=== PATIENT | female | born 1990 | race Two or more races ===

== ENCOUNTER 2025-03-29 09:15 | Observation (INO) | payer OTHER, SELFPAY ==
[2025-03-29] VITALS (85 sets, daily range): BP systolic 106–131; BP diastolic 56–77; PULSE 75–118; RESP 18–98; TEMP 36.6–36.8; O2SAT 96–99; BMI 29.2
--- NOTE | 2025-03-29 09:35 | EDNOTE_ITS ---
ED OB Contraction Preg RMI/HPI RME / HPI RME / HPI Narrative: DR. BIRCH MAIN ED EVALUATION: 34 year old female presents to the Emergency Department BIBA with complaint of contractions since this morning at about 8 AM, but did not tell us an exact time. She is 33 weeks , confirmed last week with 32 weeks ultrasound and estimated delivery date is April 15. G1, P0, A0. [facility] is Dr. Giron at [place]. 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 No vaginal discharged or abnormal bleed. Related Data Home Medications ?Medication ?Instructions ?Recorded ?Confirmed aspirin 81 mg tablet,delayed 81 mg PO QDAY 03/29/25 release (Adult Aspirin Regimen) vit with calcium-iron 1 tab PO QDAY 03/29/25 03/29/25 fum-folic acid 60 mg-0.8 mg tablet Allergies Allergy/AdvReac Type Severity Reaction Status Date / Time No Known Allergies Allergy Verified 03/29/25 09:48 Review of Systems Review of Systems Systems Reviewed: All systems reviewed, normal except as documented Narrative Review of Systems: GEN: No fever, no chills, no weight loss EYES: No discharge, no visual changes, no pain HEENT: No ear pain, no congestion, no sore throat PULM: No shortness of breath, no cough, no congestion CV: No chest pain, no dyspnea on exertion, no palpitations GI: No nausea, no vomiting, no diarrhea, no pain, no constipation : No frequency, no urgency and no dysuria MUSC/SKEL: No joint pain, no back pain SKIN: No rash PSYCH: No hallucinations, no depression HEME/LYMPH: No easy bleeding or bruising tendencies NEURO: No weakness, no headache Genitourinary Genitourinary: Denies abnormal vaginal bleeding, Denies vaginal discharge and Reports other (contractions) Past Medical History Social History SMOKING STATUS: Never smoker SUBSTANCE USE: does not use ALCOHOL: Never ED Exam Narrative Physical exam: GENERAL APPEARANCE: AxOx4, generally well-appearing, no acute distress. HEENT: NC, AT. MMM. EOMI, clear conjunctiva, oropharynx clear. NECK: Supple without lymphadenopathy. No stiffness or restricted ROM. HEART: Normal rate and regular rhythm, normal S1/S1, no m/r/g LUNGS: CTAB, moving air well. No crackles or wheezes are heard. ABDOMEN: Soft, nontender, nondistended with good bowel sounds heard. BACK: No midline C/T/L spine pain or deformity, No CVAT, no obvious deformity. EXTREMITIES: Without cyanosis, clubbing or edema. : Did a speculum vaginal exam, the external cervical os is closed. MUSCULOSKELETAL: FROM of all major joints, no chest tenderness NEUROLOGICAL: Grossly nonfocal. Alert and oriented, moving all 4 extremities. CN not formally tested but appear grossly intact. Observed to ambulate with normal gait. Skin: Warm and dry without any rash. Course Quality Measures none Orders Category Date Time Status Place in Observation Status Routine Admission 03/29/25 09:45 Active Continuous Monitoring Routine Care 03/29/25 09:45 Ordered Insert IV NOW Care 03/29/25 09:44 Active Non-Stress Test Now Care 03/29/25 09:45 Active Sterile Vaginal Exam Routine Care 03/29/25 Ordered Diet Regular Diet 03/29/25 Lunch Active CBC Stat Lab 03/29/25 10:45 Completed Group B Streptococcus Culture Routine Lab 03/29/25 11:02 Received Syphilis Stat Lab 03/29/25 10:45 Completed Type and Screen Stat Lab 03/29/25 10:45 Completed Urinalysis Stat Lab 03/29/25 11:02 Completed Urine Culture Routine Lab 03/29/25 11:02 Received Betamet Acet/Betamet Na pH Inj [Celestone Inj] Med 03/29/25 09:44 Discontinued 12 mg IM X1 ONE Ferric Sod Gluc Inj [Ferrlecit Inj] 125 mg Med 03/29/25 12:43 Discontinued Sodium Chloride 0.9% [Ns] 100 ml IV X1 Ringers Lactated 1000 ml [Lactated Ringers] 1,000 ml Med 03/29/25 09:45 Active IV 100 mls/hr Ringers Lactated 1000 ml [Lactated Ringers] 1,000 ml Med 03/29/25 09:44 Discontinued IV 999 mls/hr Terbutaline Sulf Inj [Brethine Inj] Med 03/29/25 09:44 Active 0.25 mg SC Q20M PRN Vital Signs Vital signs: Vital Signs Pulse Rate 90 03/29/25 09:27 Blood Pressure 109/67 03/29/25 09:27 OB/Uterine Contractions MDM Narrative MDM Narrative:: I, Carlie Lewis, am scribing for and in the presence of Dr. Birch. Patient data External records reviewed:: EMS form Clinical information provided by:: patient and EMS Social determinants that could affect healthcare access:: none Patient has the following chronic illnesses:: Denies any PMHx, surgeries, daily medications, or known allergies. 33 weeks . G1, P0, A0. How is presenting disease/condition affected by chronic disease/condition?: no chronic disease Evaluation data The following diagnostics were reviewed and interpreted by me:: other (specify) (none) Lab and/or radiology exams considered but not ordered:: none Interpretation Summary: n/a Medications / Prescriptions Medications or Prescriptions considered but not ordered:: none Medication administrations:: Medication Administration History Lactated Ringer's (Lactated Ringers) 1,000 mls @ 100 mls/hr IV .Q10H SUELLEN Stop: 04/28/25 09:44 Last Admin: 03/29/25 11:05 Dose: 100 mls/hr Documented By: CL Terbutaline Sulfate (Terbutaline Sulf Inj 1 Mg/Ml Vial) 0.25 mg SC Q20M PRN PRN Reason: CONTRACTIONS Last Admin: 03/29/25 11:36 Dose: 0.25 mg Documented By: CL Discontinued Medications Betamethasone Acet/Betameth SodPhos (Betamet Acet/Betamet Na Ph (Celestone) 6 Mg/Ml Vial) 12 mg IM X1 ONE Stop: 03/29/25 09:45 Last Admin: 03/29/25 11:07 Dose: 12 mg Documented By: CL Lactated Ringer's (Lactated Ringers) 1,000 mls @ 999 mls/hr IV .Q1H1M ONE Stop: 03/29/25 10:44 Last Admin: 03/29/25 09:40 Dose: 999 mls/hr Documented By: CL Ferric Sodium Gluconate 125 mg (/ Sodium Chloride) 110 mls @ 110 mls/hr IV X1 ONE Stop: 03/29/25 12:44 Last Admin: 03/29/25 13:04 Dose: 110 mls/hr Documented By: ML none Consultations Consultation(s) initiated? (list below): No Diagnosis OB Contractions Differential Diagnosis: -induced hypertension, premature labor and pre-eclampsia Most likely diagnosis given after review of the tests above:: Premature contractions Admission Indicated Admission indicated?: not indicated Explain why admission is indicated or not indicated:: sent upstairs to [facility] Admission Request Was there a request for admission?: No Disposition Plan Disposition Plan: other (specify) (sent upstairs to [facility]) Discharge Plan Prescriptions/Referrals Prescriptions/Med Rec: No Action vit-iron fum-folic ac 60-0.8 mg tablet 1 tab PO QDAY aspirin [Adult Aspirin Regimen] 81 mg tablet,delayed release (DR/EC) 81 mg PO QDAY Referrals: No Primary/Family,Physician [Primary Care Provider] - Patient/Caregiver Discharge Instructions Print Language: Malian
[2025-03-29] MEDS: RINGERS LACTATED 1000 ML 1,000 ML 999 ML IV (09:40)
[2025-03-29] MEDS: RINGERS LACTATED 1000 ML 1,000 ML 100 ML IV (11:05)
[2025-03-29] MEDS: BETAMET ACET/BETAMET NA PH (Celestone) 6 MG/ML VIAL 12 MG IM (11:07)
[2025-03-29] MEDS: TERBUTALINE SULF INJ 1 MG/ML VIAL 0.25 MG SC (11:36)
[2025-03-29 11:38] LABS: Collection Type, Urine Clean Catch
[2025-03-29 11:41] LABS: Basophils % (Auto) 0 % (0-2.5); Eosinophils # (Auto) 0.3 Thou/mm3 (0.0-0.5); Eosinophils % (Auto) 3 % (0-10); Hematocrit 27.3 % (36.0-46.0); Hemoglobin 9.5 g/dL (12.0-16.0); Immature Granulocytes % (Auto) 1 % (0-0); Immature Granulocytes Auto 0.13 Thou/mm3 (0.00-0.00); Lymphocytes # (Auto) 1.7 Thou/mm3 (1.0-4.8); Lymphocytes % (Auto) 16 % (10-50); Mean Corpuscular HGB Conc 34.8 g/dl (31.0-37.0); Mean Corpuscular Hemoglobin 27.8 pg (25.0-35.0); Mean Corpuscular Volume 80 fL (80-100); Monocytes # (Auto) 0.9 Thou/mm3 (0.0-0.8); Monocytes % (Auto) 8 % (0-12); Neutrophils # (Auto) 7.6 Thou/mm3 (1.8-7.7); Neutrophils % (Auto) 71 % (37-80); Nucleated Red Blood Cell % 0 /100 WBC (0); Platelet Count 237 Thou/mm3 (140-440); RDW Standard Deviation 34.3 fL (36.4-46.3); Red Blood Count 3.42 Miln/mm3 (4.00-5.20); White Blood Count 10.6 Thou/mm3 (3.6-11.0)
[2025-03-29 12:06] LABS: Bilirubin,Urine Negative (Negative); Blood,Urine Negative (Negative); Clarity,Urine Clear (Clear/Hazy); Color,Urine Lt-Yellow (Lt Yel-Yel); Glucose, Urine Negative (Negative); Hyaline Casts,Urine < 1 /hpf (0-1); Ketones,Urine Negative (Negative); Leukocyte Esterase,Urine Negative (Negative); Nitrite,Urine Negative (Negative); PH,Urine 6.5 (5.0-7.0); Protein,Urine Negative (Neg - Trace); RBC,Urine < 1 /hpf (0-3); Specific Gravity,Urine 1.006 (1.001-1.035); Squamous Epithelial Cell,Urine 1 /hpf (0-5); Urobilinogen,Urine Negative mg/dL (0.0-1.0); WBC,Urine < 1 /hpf (0-5)
[2025-03-29 12:33] LABS: Syphilis Nonreactive (Nonreactive)
--- NOTE | 2025-03-29 12:47 | PD.LDANTE ---
Documentation for date of: 03/29/25 OB Labor/Induct. HPI History of Present Illness Chief complaint: contractions : 2 Para: 0 Term pregnancies: 0 pregnancies: 0 Living children: 0 History of Abortions: Spontaneous and Elective: 1 History of Vaginal deliveries: 0 History of sections: No History of : No WENDY: 05/15/25 Gestational Age (weeks): 33 Gestational Age (days): 2 History of present illness: Patient presents for contractions that started around 0800. 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 Afterwards, she felt regular ctx and came to [facility] via EMS. No LOF. No vaginal bleeding. Normal movement x2. No fevers/chills. History of Present Adequate Care: Yes Narrative: Di-Di twin , has PNC with Dr. Giron in [place] Twins have been cephalic/transverse, so planning for section for delivery at 38 weeks Taking PNV and ASA Labs Labs: Unknown: RPR, Hepatitis B, Rubella Titre, HIV, Chlamydia, Gonorrhea, Herpes Type 1, Herpes Type 2, Group Beta Strep and Covid-19 Review of Systems Review of Systems Narrative Review of Systems: Review of Systems Systems Reviewed: All systems reviewed, normal except as documented Constitutional Constitutional: Denies body ache(s), Denies chills, Denies fever(s) and Denies headache(s) ENT Ears, Nose, Mouth, and Throat: Denies headache(s) and Denies vertigo Cardiovascular Cardiovascular: Denies chest pain, Denies palpitations, Denies dyspnea and Denies syncope Respiratory Respiratory: Denies cough, Denies dyspnea Gastrointestinal Gastrointestinal: Denies nausea and Denies vomiting Neurologic Neurologic: Denies convulsions, Denies headache(s), Denies other visual disturbances, Denies syncope and Denies vertigo Past Medical History Family History OTHER FAMILY HX: No gynecologic cancers Surgical History SURGICAL: Negative Section OTHER SURGICAL HX: Denies any Social History SOCIAL: , good social support, teacher. Denies tobacco/ETOH/illicit drug use. Past Medical History Comments PMH COMMENT: Seasonal allergies Childhood asthma Meds Home Medications and Allergies Home Medications ?Medication ?Instructions ?Recorded ?Confirmed ?Type aspirin 81 mg tablet,delayed 81 mg PO QDAY 03/29/25 03/29/25 History release (Adult Aspirin Regimen) vit with calcium-iron 1 tab PO QDAY 03/29/25 03/29/25 History fum-folic acid 60 mg-0.8 mg tablet Allergies Allergy/AdvReac Type Severity Reaction Status Date / Time No Known Allergies Allergy Verified 03/29/25 09:48 OB Exam Physical Exam Vital signs: Temp Pulse Resp BP Pulse Ox O2 Del Method 97.8 F 88 18 120/67 98 Room Air 03/29/25 12:10 03/29/25 12:32 03/29/25 11:15 03/29/25 12:32 03/29/25 12:46 03/29/25 09:38 Narrative: General: well developed, well nourished, no acute distress, conversant Cardiac: normal heart rate Lungs: breathing without distress Abdomen: soft, gravid, non-tender, no rebound or guarding Extremities: no pain with palpation of calves Detailed Labor and Delivery Exam Dilation (cm): 1 Effacement (%): 70 station: -2 Consistency: soft Presentation: Vertex (twin A) Membranes: intact monitor accelerations: 15x15 (x2) monitor decelerations: None (x2) intermission coordinator variability: Moderate (11-25) (x2) Contraction frequency (min): q3-5min, spaced out with IVF OB Results Labs 03/29/25 10:45 Labs: Short CBC 03/29/25 Range/Units 10:45 WBC 10.6 (3.6-11.0) Thou/mm3 Hgb 9.5 L (12.0-16.0) g/dL Hct 27.3 L (36.0-46.0) % Plt Count 237 (140-440) Thou/mm3 Urine 03/29/25 Range/Units 11:02 Urine Color Lt-Yellow (Lt Yel-Yel) Urine Clarity Clear (Clear/Hazy) Urine pH 6.5 (5.0-7.0) Ur Specific [place] 1.006 (1.001-1.035) Urine Protein Negative (Neg - Trace) Urine Glucose (UA) Negative (Negative) OB Assessment & Plan Assessment and Plan (1) Dichorionic diamniotic twin in third trimester: Status: Acute Assessment and plan: Chioma is a 34yo with di-di twins at 33&2wk presenting with ctx that stopped with IVF and terbutaline, but SCE is /70/-2 which is unexpected for a primip at this gestational age. Vitals wnl, benign exam. Reassuring assessment x2. PMhx/ complicated by: Di-Di twin , has PNC with Dr. Giron in [place] Twins have been cephalic/transverse, so planning for section for delivery at 38 weeks Taking PNV and ASA New dx of anemia, Hgb 9.5 Plan: -Admit for observation -Betamethasone 12mg IM now and repeat in 24hr -IV iron infusion x1 -Establish IV, routine labs -CEFM -Regular diet -GBS swab performed -I discussed clinical findings and concern for cervical shortening with patient and her . Discussed anemia and patient amenable to IV iron infusion. Will plan to observe today. If no recurrence of regular ctx and cervix unchanged this evening, may discharge home and have her return tomorrow for 2nd betamethasone dose. However, if ctx resume or cervical change occurs, would admit and manage accordingly. (2) Cervical shortening affecting in third trimester: Status: Acute (3) Anemia affecting in third trimester: Status: Acute
[2025-03-29] MEDS: FERRIC SOD GLUC INJ 125 MG in SODIUM CHLORIDE 0.9% 100 ML 110 MG IV (13:04)
--- NOTE | 2025-03-29 16:59 | PD.LDDS ---
DS: Providers Provider Date of admission: 03/29/25 09:15 Primary care physician: Physician No Primary/Family Admitting Provider: Zelda Landis MD Attending Provider on Admission: Zelda Landis MD Attending Provider on DC: Zelda Landis MD Discharging Provider: Zelda Landis MD DS: Diagnosis Discharge Diagnosis (1) Cervical shortening affecting in third trimester: Status: Acute (2) Dichorionic diamniotic twin in third trimester: Status: Acute (3) Anemia affecting in third trimester: Status: Acute Problem List Completed Was Problem List Reviewed/Reconciled?: Yes Summary/Hosp Course Brief History: Patient presents for contractions that started around 0800. 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 Afterwards, she felt regular ctx and came to [facility] via EMS. No LOF. No vaginal bleeding. Normal movement x2. No fevers/chills. Chioma was observed over the course of the day and contractions stopped with IVF and terbutaline, did not recur. She had reassuring status x2. She received betamethasone 12mg IM x1 at 1100. Received iron infusion for new dx of anemia. SCE at 1700 is unchanged, /-2, membranes intact. Given cessation of contractions and stability of exam, patient is stable for discharge home at this time. She will return at 1100 tomorrow for 2nd dose of betamethasone and NST. Return precautions were discussed at length with her and her and all questions answered. Status at Discharge Functional status at discharge: independent ambulation Overall status at discharge: patient is back to baseline Time Spent with Patient Time attestation: Total time spent providing and/or coordinating discharge services: Exam Vital Signs Temp Pulse Resp BP Pulse Ox O2 Del Method 97.8 F 101 H 18 106/57 L 96 Room Air 03/29/25 12:10 03/29/25 16:31 03/29/25 11:15 03/29/25 16:31 03/29/25 16:39 03/29/25 09:38 Narrative Exam General: well developed, well nourished, no acute distress, conversant Cardiac: normal heart rate Lungs: breathing without distress Abdomen: soft, gravid, non-tender, no rebound or guarding Extremities: no pain with palpation of calves Discharge Plan Plan Patient Disposition: HOME (Self Care) Patient condition on transfer: Stable Prescriptions/Referrals Prescriptions/Med Rec: No Action vit-iron fum-folic ac 60-0.8 mg tablet 1 tab PO QDAY aspirin [Adult Aspirin Regimen] 81 mg tablet,delayed release (DR/EC) 81 mg PO QDAY Referrals: No Primary/Family,Physician [Primary Care Provider] - Patient/Caregiver Discharge Instructions Discharge Activity: activity as tolerated and other Other Discharge Activity Instructions:: Rest and stay well hydrated Other Discharge Diet Instructions: regular diet Print Language: Citizen [place] Activity Restrictions/Additional Instructions: Return 1100 on 03/30 for 2nd dose of betamethasone Stand Alone Forms: Leah Award Info., Patient Portal Info Letter, Work/Release Restrictions Discharge Order Discharge Orders: Discharge (Routine); Ordered 03/29/25 Ordered By: Zelda Landis Planned Discharge Date 03/29/25
== END 2025-03-29 17:30 | disposition home or self-care (01) ==
PROVIDERS: Admitting Provider Obstetrics & Gynecology; Visit Provider Obstetrics & Gynecology
DX: O47.03 False labor before 37 completed weeks of gestation, third trimester (principal); O30.043 Twin pregnancy, dichorionic/diamniotic, third trimester; Z3A.33 33 weeks gestation of pregnancy; O99.013 Anemia complicating pregnancy, third trimester; D64.9 Anemia, unspecified
CPT/HCPCS: 36415; 59025; 59899; 81001; 85025; 86780; 86850; 86900; 86901; 87081; 87086; 96372; 99281; J0702; J2916; J3105; J7050; J7120

== ENCOUNTER 2025-03-30 11:24 | Outpatient (CLI) | payer OTHER, SELFPAY ==
[2025-03-30] VITALS (37 sets, daily range): BP systolic 107; BP diastolic 59; PULSE 70–88; RESP 20; TEMP 36.7; O2SAT 83–100; BMI 29.9
[2025-03-30] MEDS: BETAMET ACET/BETAMET NA PH (Celestone) 6 MG/ML VIAL 12 MG IM (12:07)
--- NOTE | 2025-03-30 13:29 | XR_ITS ---
Examination: Biophysical profile, ultrasound twin A INDICATIONS: Twin gestations encounter supervision normal pregnancies Date and time of exam: March 30, 2025 1344 hours Technique: Multiple transabdominal sonographic images of the pelvis abdomen obtained. Attention is directed to the breathing movement, gross body movement, amniotic fluid volume and tone. Findings: Amniotic fluid index 17 cm Total biophysical profile is 8 of 8. breathing movement is 2. Gross body movement is 2. tone is 2. Qualitative amniotic fluid volume is 2 Impression: Biophysical profile is 8 of 8. Twin A Examination: Biophysical profile, ultrasound twin B INDICATIONS: Twin gestations, supervision normal Date and time of exam: March 30, 2025 1348 hours Technique: Multiple transabdominal sonographic images of the pelvis abdomen obtained. Attention is directed to the breathing movement, gross body movement, amniotic fluid volume and tone. Findings: Amniotic fluid index 17 cm Total biophysical profile is 8 of 8. breathing movement is 2. Gross body movement is 2. tone is 2. Qualitative amniotic fluid volume is 2 Impression: Biophysical profile is 8 of 8. Twin B
[2025-03-30] MEDS: RINGERS LACTATED 1000 ML 1,000 ML 999 ML IV (15:15)
--- NOTE | 2025-03-30 17:24 | ESPR_ITS ---
Documentation for date of: 03/30/25 OB Labor Progress Note Pelvic Exam Dilation (cm): 1 Effacement (%): 70 station: -3 Amniotic membrane status: Intact Contractions Monitor mode: External Contraction frequency: irrrit Contraction intensity: Mild Status status: Category l Assessment and Plan Comments: Triage Note Chioma is a 34yo with di-di twins at 33&3wk presenting to L&D for 2nd dose of betamethasone and NST. She was observed over the course of the day yesterday for contractions that resolved with IVF and terbutaline, but SCE was /-3 (posterior) so 1st dose of betamethasone was given and she was instructed to return today for 2nd dose. She notes occasional runs of ctx, but nothing painful or persistent. She has had no lof, no vaginal bleeding. Normal movement x2. ROS negative other than what was described above. Vitals wnl, afebrile General: well developed, well nourished, no acute distress, conversant Cardiac: normal heart rate Lungs: breathing without distress Abdomen: soft, gravid, non-tender, no rebound or guarding Extremities: no edema BLE SCE: /-3 Prolonged monitoring: Cat I x2, +accels x2, mod ambar x2, twin A had a few occa sions of wandering baseline which is why patient had prolonged monitoring- to ensure there were no decels [place]: run of contractions during prolonged monitoring that stopped after 1L IVF BPP twin A 8/8, JULIO 17cm BPP twin B 8/8, JULIO 17cm Assessment: Chioma is a 34yo with di-di twins at 33&3wk with no evidence of pre-term labor based on unchanged SCE from yesterday (/-3). Run of ctx (not painful to patient) stopped with 1L IVF. Vitals wnl, benign exam. Reassuring status x2. PMhx/ complicated by: Di-Di twin , has PNC with Dr. Giron in [place] Twins have been cephalic/transverse, so planning for section for delivery at 38 weeks Taking PNV and ASA New dx of anemia, Hgb 9.5. Received iron infusion on 03/29. Plan: -Continue routine follow up with OBGYN within 1 week -Discussed return precautions -Note given for remainder of this week off of work. Discussed importance of rest and hydration. -Safe for discharge home at this time Zelda Landis MD
== END 2025-03-30 17:25 | disposition home or self-care (01) ==
LOC: S4S1 11:25 → S4SX 11:26
PROVIDERS: Referring Provider Obstetrics & Gynecology; Visit Provider Obstetrics & Gynecology
DX: O30.043 Twin pregnancy, dichorionic/diamniotic, third trimester (principal); O99.013 Anemia complicating pregnancy, third trimester; D64.9 Anemia, unspecified; Z3A.33 33 weeks gestation of pregnancy
CPT/HCPCS: 59025; 76819; 96372; J0702; J7120